=== PATIENT | female | born 1990 | race African-American/Black ===

== ENCOUNTER 2016-07-02 10:56 | Emergency (ER) | payer OTHER ==
[~2016-07-02] VITALS: Ht 162.6 cm; Wt 68.0 kg
[2016-07-02] MEDS ORDERED: DONNATAL/LIDOCAINE/MAALOX 55 ML BOTTLE PO ONE (11:30)
[2016-07-02 11:37] LABS: BASOPHILS % (AUTO) 0.5 % (0.0-2.0); EOSINOPHILS % (AUTO) 0.4 % (1.0-6.0); HEMATOCRIT 39.1 % (36-46); HEMOGLOBIN 12.9 g/dL (12.0-16.0); LYMPHOCYTES # (AUTO) 1.7 K/uL (1.0-4.8); LYMPHOCYTES % (AUTO) 22.8 % (22.0-44.0); MEAN CORPUSCULAR HGB CONC 32.9 G/dL (31.0-37.0); MEAN CORPUSCULAR VOLUME 79 fL (80-100); MONOCYTES # (AUTO) 0.4 K/uL (0.1-1.0); MONOCYTES % (AUTO) 5.8 % (2.0-9.0); NEUTROPHILS # (AUTO) 5.2 K/uL (1.8-7.7); NEUTROPHILS % (AUTO) 70.5 % (40.0-70.0); PLATELET COUNT (AUTO) 240 K/uL (150-450); RED BLOOD CELL COUNT(AUTO) 4.96 MIL/uL (4.00-5.20); WHITE BLOOD COUNT (AUTO) 7.4 K/uL (4.5-11.0)
[2016-07-02 11:40] VITALS: BP 104/72
[2016-07-02 11:53] LABS: ANION GAP 7 mmol/L (8-16); CALCIUM, TOTAL 8.8 mg/dL (8.8-10.5); CARBON DIOXIDE 29 mmol/L (22-29); CHLORIDE 101 mmol/L (98-107); CREATININE 0.76 mg/dL (0.60-1.30); GLOMERULAR FILTR. RATE CALC > 60 mL/min (>60); SODIUM SERUM 137 mmol/L (136-145); UREA NITROGEN, BLOOD 8 mg/dL (7-18)
[2016-07-02 11:59] LABS: ALANINE AMINOTRANSFERASE 21 U/L (12-78); ALBUMIN 4.1 g/dL (3.4-5.0); ASPARTATE AMINOTRANSFERASE 19 U/L (15-37); BILIRUBIN,TOTAL 1.1 mg/dL (0.1-1.0); TOTAL PROTEIN, SERUM 8.1 g/dL (6.4-8.2)
== END 2016-07-02 12:28 | disposition home or self-care (01) ==
LOC: EMS 10:57
DX: K59.00 Constipation, unspecified (principal)
CPT/HCPCS: 36415; 80053; 83690; 84703; 85025; 99284; Z7610

== ENCOUNTER 2017-02-06 18:23 | Emergency (ER) | payer OTHER ==
[~2017-02-06] VITALS: Ht 165.1 cm; Wt 66.0 kg
[2017-02-06 19:50] VITALS: BP 138/85
== END 2017-02-06 20:21 | disposition home or self-care (01) ==
LOC: EMS 18:29
DX: G56.01 Carpal tunnel syndrome, right upper limb (principal)
CPT/HCPCS: 99284

== ENCOUNTER 2017-04-26 19:18 | Emergency (ER) | payer OTHER | END 2017-04-26 20:23 | disposition left against medical advice (07) | LOC: EMS 19:19 | DX: R07.0 Pain in throat (principal); Z53.21 Procedure and treatment not carried out due to patient leaving prior to being seen by health care provider ==